=== PATIENT | female | born 1980 ===

== ENCOUNTER 2021-08-27 20:31 | Emergency (ER) | payer SELFPAY ==
[2021-08-27 21:06] VITALS: BP 151/87
[2021-08-27] MEDS ORDERED: ASPIRIN 325 MG TAB PO ONE (21:08)
[2021-08-27 21:42] LABS: Basophils # (Auto) 0.1 K/mm3 (0.0-0.1); Basophils % (Auto) 0.7 % (0.0-1.8); Eosinophils # (Auto) 0.3 K/mm3 (0.0-0.4); Eosinophils % (Auto) 2.7 % (0.0-4.3); Hematocrit 37.2 % (30.3-42.9); Hemoglobin 12.2 gm/dl (10.1-14.3); Lymphocytes # (Auto) 3.3 K/mm3 (1.2-5.4); Mean Corpuscular HGB Conc 33 % (30-34); Mean Corpuscular Volume 83 fl (79-97); Monocytes # (Auto) 0.9 K/mm3 (0.0-0.8); Monocytes % (Auto) 9.3 % (0.0-7.3); Platelet Count 411 K/mm3 (140-440); Red Blood Count 4.46 M/mm3 (3.65-5.03); Red Cell Distribution Width 14.5 % (13.2-15.2)
[2021-08-27 22:07] LABS: Alanine Aminotransferase 8 units/L (7-56); Albumin 4.5 g/dL (3.9-5); Blood Urea Nitrogen 10 mg/dL (7-17); Calcium 9.6 mg/dL (8.4-10.2); Hemolysis Index 10
--- NOTE | 2021-08-27 22:16 | XRay Report ---
XR chest routine 2V INDICATION / CLINICAL INFORMATION: CHEST PAIN. COMPARISON: None available. FINDINGS: SUPPORT DEVICES: None. HEART /PULMONARY VASCULATURE: No significant abnormality. LUNGS / PLEURA: No significant pulmonary or pleural abnormality. No pneumothorax. ADDITIONAL FINDINGS: No significant additional findings. IMPRESSION: 1. No acute findings. Signer Name: Dc Girgsby MD Signed: 08/27/2021 10:12 PM Workstation Name: [id number]
[2021-08-27 22:22] LABS: BUN/Creatinine Ratio 20
--- NOTE | 2021-08-28 08:10 | Electrocardiograph Report ---
[facility] Test Date: 2021-08-27 Test Time: 21:00:04 Pat Name: JOHNY CRANDALL Department: Room: Gender: F [employer] Vice President: JAMES : 1980 Requested By: ED DOC Order Number: [id number] Reading MD: Victoriano Ferrara Measurements Intervals [place] Rate: 69 P: 74 W[place]: 175 QRS: 82 QRSD: 88 T: 80 QT: 400 QTc: 429 Interpretive Statements Sinus rhythm No previous ECG available for comparison Electronically Signed On 08-28-2021 8:09:48 EDT by Victoriano Ferrara
== END 2021-08-28 01:28 | disposition left against medical advice (07) ==
LOC: ED 20:31
DX: R07.9 Chest pain, unspecified (principal); Z53.21 Procedure and treatment not carried out due to patient leaving prior to being seen by health care provider
CPT/HCPCS: 36415; 71046; 80053; 84484; 85025; 93005